=== PATIENT | female | born 2000 | race Two or more races ===

== ENCOUNTER 2024-09-21 11:50 | Outpatient (CLI) | payer MEDICAID, SELFPAY ==
[2024-09-21] VITALS (16 sets, daily range): BP systolic 130–131; BP diastolic 75–77; PULSE 93–103; RESP 18–98; TEMP 37.2; O2SAT 97–98; BMI 44.4
[2024-09-21] MEDS: BETAMET ACET/BETAMET NA PH (Celestone) 6 MG/ML VIAL 12 MG IM (13:08)
== END 2024-09-21 13:20 | disposition home or self-care (01) ==
LOC: S4S1 11:51 → S4SX 11:52
PROVIDERS: Referring Provider Obstetrics & Gynecology; Visit Provider Obstetrics & Gynecology
DX: Z34.83 Encounter for supervision of other normal pregnancy, third trimester (principal); Z36.9 Encounter for antenatal screening, unspecified; Z3A.32 32 weeks gestation of pregnancy
CPT/HCPCS: 59025; 96372; J0702

== ENCOUNTER 2024-09-22 13:34 | Outpatient (CLI) | payer MEDICAID, SELFPAY ==
[2024-09-22] VITALS (8 sets, daily range): BP systolic 133–134; BP diastolic 71–84; PULSE 97–111; RESP 18; TEMP 36.7; O2SAT 97–98; BMI 44.4
[2024-09-22] MEDS: BETAMET ACET/BETAMET NA PH (Celestone) 6 MG/ML VIAL 12 MG IM (14:13)
== END 2024-09-22 14:20 | disposition home or self-care (01) ==
LOC: S4S1 13:38 → S4SX 13:39
PROVIDERS: Referring Provider Obstetrics & Gynecology; Visit Provider Obstetrics & Gynecology
DX: Z34.83 Encounter for supervision of other normal pregnancy, third trimester (principal); Z3A.33 33 weeks gestation of pregnancy
CPT/HCPCS: 96372; J0702

== ENCOUNTER 2024-10-20 07:00 | Inpatient (IN) | payer MEDICAID, SELFPAY ==
[2024-10-20] VITALS (152 sets, daily range): BP systolic 100–144; BP diastolic 59–84; PULSE 66–176; RESP 18; TEMP 36.8–37.1; O2SAT 90–100; BMI 45.8
[2024-10-20 08:34] LABS: Collection Type, Urine Clean Catch
[2024-10-20 08:50] LABS: Basophils # (Auto) 0.0 Thou/mm3 (0.0-0.2); Basophils % (Auto) 0 % (0-2.5); Eosinophils # (Auto) 0.1 Thou/mm3 (0.0-0.5); Eosinophils % (Auto) 1 % (0-10); Hematocrit 37.5 % (36.0-46.0); Hemoglobin 12.1 g/dL (12.0-16.0); Immature Granulocytes Auto 0.03 Thou/mm3 (0.00-0.00); Lymphocytes # (Auto) 2.4 Thou/mm3 (1.0-4.8); Lymphocytes % (Auto) 26 % (10-50); Mean Corpuscular HGB Conc 32.3 g/dl (31.0-37.0); Mean Corpuscular Hemoglobin 25.9 pg (25.0-35.0); Mean Corpuscular Volume 80 fL (80-100); Monocytes # (Auto) 0.6 Thou/mm3 (0.0-0.8); Monocytes % (Auto) 6 % (0-12); Neutrophils # (Auto) 6.1 Thou/mm3 (1.8-7.7); Neutrophils % (Auto) 67 % (37-80); Nucleated Red Blood Cell # 0.00 Thou/mm3 (0.00-0.00); Nucleated Red Blood Cell % 0 /100 WBC (0); Platelet Count 266 Thou/mm3 (140-440); RDW Standard Deviation 40.4 fL (36.4-46.3); Red Blood Count 4.67 Miln/mm3 (4.00-5.20); White Blood Count 9.2 Thou/mm3 (3.6-11.0)
[2024-10-20 08:56] LABS: Bacteria,Urine 1+; Bilirubin,Urine Negative (Negative); Blood,Urine Negative (Negative); Clarity,Urine Turbid (Clear/Hazy); Color,Urine Lt-Yellow (Lt Yel-Yel); Glucose, Urine Negative (Negative); Ketones,Urine 1+ (Negative); Leukocyte Esterase,Urine Positive (Negative); Nitrite,Urine Negative (Negative); PH,Urine 6.5 (5.0-7.0); Protein,Urine Negative (Neg - Trace); RBC,Urine 2 /hpf (0-3); Specific Gravity,Urine 1.013 (1.001-1.035); Squamous Epithelial Cell,Urine 16 /hpf (0-5); Transitional Epi Cells,Urine 1 /hpf (0-5); Urobilinogen,Urine Negative mg/dL (0.0-1.0); WBC,Urine 52 /hpf (0-5)
[2024-10-20 09:06] LABS: Fibrinogen 612 mg/dL (175-375)
[2024-10-20 09:07] LABS: Creatinine,Random Urine 108 mg/dL (30-125); Protein Total, Random Urine 26 mg/dL (1-14)
[2024-10-20 09:09] LABS: Alanine Aminotransferase < 7 U/L (10-49); Albumin, Serum 3.8 gm/dL (3.5-5.0); Albumin/Globulin Ratio 1.5 (1.2-2.2); Alkaline Phosphatase 131 U/L (46-116); Anion Gap 13 (7-16); Aspartate Amino Transferase 11 U/L (0-34); BUN/Creatinine Ratio 13 Ratio (12-20); Bilirubin,Total 0.3 mg/dL (0.3-1.2); Blood Urea Nitrogen 8 mg/dL (9-23); Calcium 9.1 mg/dL (8.3-10.6); Calcium (Corrected) 9.3 mg/dL (8.5-10.1); Carbon Dioxide 20.7 mMol/L (20.0-31.0); Chloride 107 mMol/L (98-107); Creatinine (Component) 0.6 mg/dL (0.6-1.3); Estimated Creatinine Clearance 198.1 mL/min (>60); Globulin 2.5 gm/dL (2.3-3.5); Glucose 95 mg/dL (74-106); Osmolality,Calculated 279 (275-295); Potassium 3.6 mMol/L (3.4-5.1); Sodium 141 mMol/L (136-145); Total Protein 6.3 gm/dL (5.7-8.2); Uric Acid 3.8 mg/dL (3.1-7.8); eGFR > 60 See Note
[2024-10-20 09:30] LABS: Syphilis Nonreactive (Nonreactive)
--- NOTE | 2024-10-20 11:26 | ESHP_ITS ---
Documentation for date of: 10/20/24 OB Labor/Induct. HPI History of Present Illness Chief complaint: induction : 2 Para: 1 Term pregnancies: 1 pregnancies: 0 Living children: 1 History of Abortions: Spontaneous and Elective: 0 History of Vaginal deliveries: 1 History of sections: No History of : No Date of last menstrual period: 02/04/24 RAFAELA: 11/10/24 Gestational Age (weeks): 37 Gestational Age (days): 0 Gestational age based on last menstrual period: 37 Indication for induction: medical complication (pre-eclampsia withOUT severe features) History of present illness: Patient presents for scheduled induction of labor. Indication: pre-eclampsia withOUT severe features. No regular/painful ctx. No LOF. No vaginal bleeding. Normal movement. No headache, vision changes, RUQ pain. History of Present Dating criteria: LMP confirmed by 1st trimester US Adequate Care: Yes Obstetrical complications: preeclampsia (CHTN with development of proteinuria, 24hr UP on 09/07 was 327mg, Current BMI 45.8 taking ASA) Labs Maternal Blood Type: B Pos Labs: Negative: RPR, Hepatitis B, Rubella Titre, HIV, Chlamydia and Gonorrhea and Unknown: Group Beta Strep Narrative: 24hr UP on 09/07 was 327mg 1hr glucola 132 HgbA1c 5.7 NIPT negative, XY Review of Systems Review of Systems Narrative Review of Systems: Review of Systems Systems Reviewed: All systems reviewed, normal except as documented Constitutional Constitutional: Denies body ache(s), Denies chills, Denies fever(s) and Denies headache(s) ENT Ears, Nose, Mouth, and Throat: Denies headache(s) and Denies vertigo Cardiovascular Cardiovascular: Denies chest pain, Denies palpitations, Denies dyspnea and Denies syncope Respiratory Respiratory: Denies cough, Denies dyspnea Gastrointestinal Gastrointestinal: Denies nausea and Denies vomiting Neurologic Neurologic: Denies convulsions, Denies headache(s), Denies other visual disturbances, Denies syncope and Denies vertigo Past Medical History Family History OTHER FAMILY HX: non-contributory Surgical History SURGICAL: Negative Section OTHER SURGICAL HX: denies Social History SOCIAL: No tobacco/ETOH/illicit drug use Past Medical History Comments PMH COMMENT: CHTN, Current BMI 45.8 Meds Home Medications and Allergies Home Medications ?Medication ?Instructions ?Recorded ?Confirmed ?Type prenat.vits,taiwo,vio-eubm-snomy 1 tab PO QDAY 02/08/22 10/20/24 History Allergies Allergy/AdvReac Type Severity Reaction Status Date / Time No Known Allergies Allergy Verified 10/20/24 09:44 OB Exam Physical Exam Vital signs: Temp Pulse Resp BP Pulse Ox 98.3 F 88 18 118/75 97 10/20/24 07:09 10/20/24 10:30 10/20/24 07:09 10/20/24 10:30 10/20/24 10:51 Narrative: General: well developed, well nourished, no acute distress, conversant Cardiac: normal heart rate Lungs: breathing without distress Abdomen: soft, gravid, obese, non-tender, no rebound or guarding Extremities: no pain with palpation of calves Detailed Labor and Delivery Exam Dilation (cm): 0 Effacement (%): 0 Cervix position: posterior station: -3 Consistency: firm Presentation: Vertex Membranes: intact monitor accelerations: 15x15 monitor decelerations: None buttermaker helper variability: Moderate (11-25) Contraction frequency (min): no ctx pattern OB Results Labs 10/20/24 08:16 10/20/24 08:16 Labs: Short CBC 10/20/24 Range/Units 08:16 WBC 9.2 (3.6-11.0) Thou/mm3 Hgb 12.1 (12.0-16.0) g/dL Hct 37.5 (36.0-46.0) % Plt Count 266 (140-440) Thou/mm3 BMP 10/20/24 08:16 Sodium 141 Potassium 3.6 Chloride 107 Carbon Dioxide 20.7 BUN 8 L Creatinine 0.6 Glucose 95 Calcium 9.1 Liver Function 10/20/24 Range/Units 08:16 Total Bilirubin 0.3 (0.3-1.2) mg/dL AST 11 (0-34) U/L ALT < 7 L (10-49) U/L Alkaline Phosphatase 131 H (46-116) U/L Albumin 3.8 (3.5-5.0) gm/dL Urine 10/20/24 Range/Units 08:16 Urine Color Lt-Yellow (Lt Yel-Yel) Urine Clarity Turbid A (Clear/Hazy) Urine pH 6.5 (5.0-7.0) Ur Specific [place] 1.013 (1.001-1.035) Urine Protein Negative (Neg - Trace) Urine Glucose (UA) Negative (Negative) OB Assessment & Plan Assessment and Plan (1) Pre-eclampsia during in third trimester, antepartum: Status: Acute Assessment and plan: Alyssa is a 24yo with SIUP at 37&0wk presenting for scheduled IOL 2/2 pre-eclampsia withOUT severe features. SCE: ft/thick/high. Cephalic. Vitals wnl (bp's normotensive), benign exam. Reassuring assessment overall. PIH labs wnl today, urine p:c 0.2. care with Dr. [facility] PMhx/PNC significant for: CHTN with development of proteinuria, 24hr UP on 09/07 was 327mg Current BMI 45.8, was taking ASA until recently Plan: -Admit to L&D -Establish IV, routine labs -CEFM -Regular diet [id number], then clear liquid diet in labor -Non Emergency Services Ambulance Driver/consent re: iol and -GBS status: unknown. Ampicillin per protocol once in labor. -IOL initiated with: cytotec 25mcg PV Q4hr. 3hr after first dose, SCE 1/thick/-3 and saeed cervical balloon was placed at 11:45 with 40cc in the uterine balloon only- well tolerated. -Anticipate -Safe to proceed Loreta Shen MD (2) Encounter for induction of labor: Status: Acute (3) Obesity complicating in third trimester: Status: Acute (3) Obesity complicating in third trimester Qualifiers: Obesity type affecting : unspecified obesity Qualified Code(s): O 99.213 - Obesity complicating , third trimester
[2024-10-20] MEDS: Ampicillin Inj 2,000 MG in SODIUM CHLORIDE 0.9% (POP) 100 ML 200 MG IV (17:11)
[2024-10-20] MEDS: OXYTOCIN in NS 30 units 30 UNIT/500 ML BAG IV (17:12)
--- NOTE | 2024-10-20 18:49 | ESPR_ITS ---
Documentation for date of: 10/20/24 OB Labor Progress Note Pelvic Exam Dilation (cm): 4 Effacement (%): 50 station: -3 Amniotic membrane status: Intact Contractions Monitor mode: External Contraction frequency: 1.5-2 Contraction intensity: Mild Status status: Category l Assessment and Plan Comments: Intrapartum Note Patient doing well overall. Cervical saeed balloon came out this afternoon. She is requesting epidural and IVF bolus was initiated, SENIOR TELECOMMUNICATIONS TECHNICIAN informed. Vitals wnl- normotensive, afebrile Cat I FHRT Ctx q2-3min SCE: /-3 Plan: Continue to closely observe Epidural upcoming CEFM IV pitocin for augmentation Ampicillin for GBS unknown Will perform AROM when optimal conditions Safe to proceed Loreta Shen MD
[2024-10-20] MEDS: Ampicillin Inj 1,000 MG in SODIUM CHLORIDE 0.9% (Popper) 50 ML 50 MG IV (21:12)
[2024-10-21] VITALS (77 sets, daily range): BP systolic 108–137; BP diastolic 56–80; PULSE 69–111; RESP 17–18; TEMP 36.6–37.2; O2SAT 89–99
--- NOTE | 2024-10-21 00:47 | PD.LDPN ---
Documentation for date of: 10/21/24 OB Labor Progress Note Pelvic Exam Dilation (cm): 4 Effacement (%): 50 station: -3 Amniotic membrane status: Intact Contractions Monitor mode: External Contraction frequency: 2-3 Contraction intensity: Moderate Status status: Category l Assessment and Plan Comments: Intrapartum Note Patient doing well. Epidural was recently re-bolused and she is pain-free now. Having some heartburn. Pitocin currently at 4mu. Vitals wnl, afebrile Cat I FHRT Ctx q3min SCE: 50/-3, AROM performed, slight blood tinge but otherwise clear, well tolerated. IUPC placed. Plan to titrate pitocin to adequate MVUs Pepcid for GERD Continue to closely monitor Safe to proceed Loreta Shen MD
[2024-10-21] MEDS: FAMOTIDINE INJ 10 MG/ML VIAL 2 ML 20 MG IVP (00:50)
[2024-10-21] MEDS: Ampicillin Inj 1,000 MG in SODIUM CHLORIDE 0.9% (Popper) 50 ML 50 MG IV (01:31)
[2024-10-21] MEDS: OXYTOCIN in NS 20 units 20 UNIT/1,000 ML BAG 125 UNIT IV (03:41)
--- NOTE | 2024-10-21 04:20 | PD.LDDELS ---
Data ([facility]) Data Hx Section: No : 2 Term: 1 : 0 Livin Abortions: Spontaneous & Theraputic: 0 Delivery Data ([facility]) Labor Data Initiation of labor: Induction Induction/Augmentation Agent: Cytotec-PO and Cervical Balloon ROM date: 10/21/24 ROM time: 00:40 Amniotic membrane rupture type: Artificial Amniotic fluid description: Clear Delivery Data Onset of labor date: 10/21/24 Onset of labor time: 01:36 Complete dilation date: 10/21/24 Complete dilation time: 03:32 delivery date: 10/21/24 delivery time: 03:32 Placenta delivery date: 10/21/24 Placenta delivery time: 03:41 Stage 1 total time: Labor - Stage 1 Duration 1 hours and 56 minutes Delivered by: Stephany Heredia RN Delivery nurse: Jamie Mchugh nurse: Luma Jensen Veneer Production Machine Operator at delivery: No Other staff at delivery: Caterina Byers RN Delivery Method Delivery method: Precipitous Vaginal Delivery Presentation: Vertex Anesthesia Type Anesthesia Type: Epidural Placenta Placenta delivery description: Spontaneous Cord blood sent to lab: Yes cord blood collection: Cord Blood Type Episiotomy Episiotomy description: None EBL Estimated blood loss (ml): 200 Umbilical Cord cord description: 3 Vessels Additional Procedures Alyssa is a 24yo [id number] s/p uncomplicated at 37&1wk after undergoing IOL for pre-eclampsia withOUT severe features, delivering at 0332 on 10/21/2024. On presentation, SCE was ft/thick/high. She progressed with cytotec, cervical saeed balloon pitocin augmentation and AROM. She received an epidural in labor. RN called me after delivery reporting patient was 8cm on prior check and then when she entered patient's room to address patient's vomiting, head spontaneously delivered. RN notes no delay of shoulder, infant had spontaneous cry and was vigorous. Apgars 9/9. Infant placed on maternal abdomen where nose/mouth were suctioned and dried/stimulated. After approximately 1 minute, cord was clamped x2 and cut. Cord blood collected for typing. With fundal massage and cord traction, placenta delivered spontaneously and intact with 3 vessel centrally inserted cord. Bimanual massage performed and IV pitocin given per protocol with fundus then firm at u-2cm and hemostasis noted. Inspection of perineum and vagina revealed very small/superficial bilateral labial lacerations and a small 2nd degree midline perineal laceration which were repaired in routine fashion with 3-0 vicryl- total reapproximation and hemostasis achieved. Small trickle of blood, so sweep just within cervix/CELINE performed which retrieved a small amount of clot. Fundus remained firm. All counts correct x2. Mom and were doing well when I left the room. Loreta Shen MD Complications Complications: none Data ([facility]) [place] Data order: 1 [place]'s gender: Male Identification band number: [id number] weight (gms): 2970 g Weight (pounds): 6 lbs and 8.8 ozs length: 54.61 cm 1 minute: 9 5 minutes: 9
[2024-10-21] MEDS: BENZO/LANO/ALOE (Dermoplast) 60 GM CAN 1 SPRAY TOP (05:33)
[2024-10-21] MEDS: DOCUSATE SOD 100 MG CAPSULE PO ×2 (08:37→20:37)
[2024-10-21 09:51] LABS: Basophils # (Auto) 0.0 Thou/mm3 (0.0-0.2); Basophils % (Auto) 0 % (0-2.5); Eosinophils # (Auto) 0.0 Thou/mm3 (0.0-0.5); Eosinophils % (Auto) 0 % (0-10); Hematocrit 34.3 % (36.0-46.0); Hemoglobin 11.6 g/dL (12.0-16.0); Immature Granulocytes Auto 0.04 Thou/mm3 (0.00-0.00); Lymphocytes # (Auto) 2.1 Thou/mm3 (1.0-4.8); Lymphocytes % (Auto) 16 % (10-50); Mean Corpuscular HGB Conc 33.8 g/dl (31.0-37.0); Mean Corpuscular Hemoglobin 26.2 pg (25.0-35.0); Mean Corpuscular Volume 77 fL (80-100); Monocytes # (Auto) 0.7 Thou/mm3 (0.0-0.8); Monocytes % (Auto) 5 % (0-12); Neutrophils # (Auto) 10.6 Thou/mm3 (1.8-7.7); Neutrophils % (Auto) 79 % (37-80); Nucleated Red Blood Cell # 0.00 Thou/mm3 (0.00-0.00); Nucleated Red Blood Cell % 0 /100 WBC (0); Platelet Count 248 Thou/mm3 (140-440); RDW Standard Deviation 39.5 fL (36.4-46.3); Red Blood Count 4.43 Miln/mm3 (4.00-5.20); White Blood Count 13.4 Thou/mm3 (3.6-11.0)
--- NOTE | 2024-10-21 10:26 | CHAP ---
Patient was visited by the Spiritual Care Volunteer who prayed for them. (Volunteer was in the hospital from 10:05-10:26)
[2024-10-21] MEDS: IBUPROFEN TAB 400 MG TABLET 800 MG PO (11:42)
[2024-10-22 04:58] VITALS: BP 107/71; PULSE 80; RESP 17; TEMP 36.5; O2SAT 96
[2024-10-22 07:16] VITALS: BP 125/82; PULSE 80; RESP 16; TEMP 36.6; O2SAT 98
[2024-10-22] MEDS: DOCUSATE SOD 100 MG CAPSULE PO (08:03)
--- NOTE | 2024-10-22 08:58 | ESDS_ITS ---
DS: Providers Provider Date of admission: 10/20/24 07:00 Primary care physician: Physician No Primary/Family Admitting Provider: Loreta Shen MD Attending Provider on Admission: Loreta Shen MD Consults: 10/21/24 04:18 Referral Routine Comment: Attending Provider on DC: Loreta Shen MD Discharging Provider: Loreta Shen MD DS: Diagnosis Discharge Diagnosis (1) Encounter for induction of labor: Status: Acute (2) Obesity complicating in third trimester: Status: Acute (3) Pre-eclampsia during in third trimester, antepartum: Status: Acute (4) care and examination immediately after delivery: Status: Acute Problem List Completed Was Problem List Reviewed/Reconciled?: Yes Summary/Hosp Course Brief History: Patient presents for scheduled induction of labor. Indication: pre-eclampsia withOUT severe features. No regular/painful ctx. No LOF. No vaginal bleeding. Normal movement. No headache, vision changes, RUQ pain. Alyssa is a 24yo [id number] s/p uncomplicated at 37&1wk after undergoing IOL for pre-eclampsia withOUT severe features, delivering at 0332 on 10/21. She has had an uncomplicated course, meeting all milestones and feels ready for discharge home. She is ambulating without lightheadedness, tolerating regular diet no n/v, spontaneously voiding without issue. She has no chest pain or shortness of breath. No fevers or chills. Minimal, appropriate discomfort. Vitals normal, benign exam. Hemodynamically stable with no evidence of infection. PP Hgb 11.6. Peripartum Data Delivery Method: Precipitous Vaginal Delivery Episiotomy Description: None Status at Discharge Functional status at discharge: independent ambulation Overall status at discharge: patient is back to baseline Time Spent with Patient Time attestation: Total time spent providing and/or coordinating discharge services: Exam Vital Signs Temp Pulse Resp BP Pulse Ox O2 Del Method 97.9 F 80 16 125/82 98 Room Air 10/22/24 07:16 10/22/24 07:16 10/22/24 07:16 10/22/24 07:16 10/22/24 07:16 10/22/24 07:16 Narrative Exam General: well developed, well nourished, no acute distress, conversant Cardiac: normal heart rate Lungs: breathing without distress Abdomen: soft, post-gravid, non-tender, no rebound or guarding, Fundus firm at u-3cm. Extremities: no pain with palpation of calves, trace edema of BLE Discharge Plan Plan Patient Disposition: HOME (Self Care) Patient condition on transfer: Stable Prescriptions/Referrals Prescriptions/Med Rec: New docusate sodium 100 mg Capsule 100 mg PO BID 10 Days Qty: 20 0RF ibuprofen 800 mg tablet 800 mg PO Q8H PRN (Reason: See Comments) 10 Days Qty: 20 0RF No Action Vitamin Tablet 1 tab PO QDAY Referrals: No Primary/Family,Physician [Primary Care Provider] - Patient/Caregiver Discharge Instructions Discharge Activity: activity as tolerated and other Other Discharge Activity Instructions:: vaginal rest and no heavy lifting for 6 weeks Other Discharge Diet Instructions: regular diet Education Materials: After a Vaginal Print Language: [place] Activity Restrictions/Additional Instructions: Follow up with your OBGYN in 2-4 weeks, call clinic for appointment Stand Alone Forms: Josefina Award Info., Patient Portal Info Letter Discharge Order Discharge Orders: Discharge (Routine); Ordered 10/22/24 Ordered By: Loreta Shen Planned Discharge Date 10/22/24 (2) Obesity complicating in third trimester Qualifiers: Obesity type affecting : unspecified obesity Qualified Code(s): O99.213 - Obesity complicating , third trimester
== END 2024-10-22 10:00 | disposition home or self-care (01) | DRG 560 ==
LOC: S4SX 11:55 → S4NX 10-21 05:39
PROVIDERS: Admitting Provider Obstetrics & Gynecology; Visit Provider Obstetrics & Gynecology
DX: O14.04 Mild to moderate pre-eclampsia, complicating childbirth (principal); Z37.0 Single live birth; Z3A.37 37 weeks gestation of pregnancy; O70.1 Second degree perineal laceration during delivery; O62.3 Precipitate labor; O99.214 Obesity complicating childbirth; Z23 Encounter for immunization
CPT/HCPCS: 36415; 59409; 80053; 81001; 82570; 84156; 84550; 85025; 85384; 86780; 86850; 86900; 86901; 90707; 94762; J0290; J2590; J2795; J3010; J3490; J7050; A9270